=== PATIENT | male | born 1965 | race Caucasian/White ===

== ENCOUNTER 2021-11-30 11:11 | Outpatient (CLI) | payer MEDICARE, SELFPAY ==
[2021-11-30 11:32] LABS: Hematocrit 44.1 % (42.0-52.0); Hemoglobin 14.6 g/dL (14.0-18.0); Mean Corpuscular HGB Conc 33.1 g/dl (32-36); Mean Corpuscular Hemoglobin 33.1 pg (26-34); Platelet Count Result 260 k/mm3 (150-375); Red Blood Count 4.41 M/mm3 (4.6-6.20); Red Cell Distribution Width 12.9 % (11.5-14.5)
[2021-11-30 11:57] LABS: Alanine Aminotransferase 38 U/L (6-50); Albumin Level 4.3 g/dL (3.5-5.1); Alkaline Phosphatase 76 U/L (38-126); Anion Gap 8 mmol/L (8-16); Aspartate Amino Transferase 35 U/L (17-59); Bilirubin,Total 0.7 mg/dL (0.2-1.3); Blood Urea Nitrogen 29 mg/dL (9-20); Calcium 9.4 mg/dL (8.4-10.2); Carbon Dioxide 27 mmol/L (22-30); Chloride 101 mmol/L (98-107); Estimated Glomerular Filt Rate 45; Glucose 100 mg/dL (65-110); Potassium 4.3 mmol/L (3.4-5.0); Sodium 136 mmol/L (137-145)
[2021-12-03 15:28] LABS: Cholesterol 277 mg/dL (0-200); HDL Direct 53 mg/dL; Triglycerides 264 mg/dL (<150)
[2021-12-03 15:39] LABS: LDL Cholesterol Direct 166 mg/dL
== END 2021-11-30 11:12 | disposition home or self-care (01) ==
PROVIDERS: PCP Family Medicine; Visit Provider Physician Assistant
DX: E78.00 Pure hypercholesterolemia, unspecified (principal); R53.83 Other fatigue; Z13.1 Encounter for screening for diabetes mellitus; Z12.5 Encounter for screening for malignant neoplasm of prostate
CPT/HCPCS: 36415; 80053; 80061; 84153; 85027; G0103

== ENCOUNTER 2021-12-07 09:22 | Outpatient (CLI) | payer MEDICARE, SELFPAY ==
--- NOTE | ~2021-12-07 | XR_ITS ---
EXAMINATION: XR knee LT min 4V DATE: 12/07/2021 10:04 INDICATION: Painful lump anteroinferior to the left patella. TECHNIQUE: 4 views of left knee including standing views were obtained. COMPARISON: None. FINDINGS: Bone alignment is normal. No fracture. There is mild tricompartmental osteoarthritis charac terized by tiny osteophytes. No joint space narrowing. There is a small knee joint effusion. There is shrapnel in the soft tissues with the largest fragment measuring 6 mm in the posterior soft tissues. There is superficial infrapatellar soft tissue swelling. IMPRESSION: 1. Mild left knee osteoarthritis. 2. Small left knee joint effusion. 3. Superficial infrapatellar soft tissue swelling. 4. Shrapnel in the soft tissues. Reviewed, dictated and finalized at location A.
--- NOTE | ~2021-12-07 | CT_ITS ---
EXAMINATION: CT lung screening DATE: 12/07/2021 09:45 INDICATION: Personal history of nicotine dependence, current smoker with 80 pack year history TECHNIQUE: Computed tomography (CT) of the chest was performed without intravenous contrast. The dose -length product (DLP) was 169.89 mGy-cm. Automated exposure control and iterative reconstruction tech [employer] were employed. COMPARISON: None FINDINGS: There is mild emphysema. There is a 2 mm nodule of the left upper lobe on image 47. Calcifi ed pulmonary nodules are consistent with old granulomatous disease. The lungs are free of acute opaci ties. No pleural effusion or pneumothorax. No pathologically enlarged thoracic lymph nodes are identi fied. The heart size is normal. There is moderate thoracic spondylosis. There is a partially imaged 4 .4 cm cyst of the right kidney. IMPRESSION: 1. Lung-RADS category 2: Benign appearance or behavior. Continue annual screening with noncontrast lo w-dose chest CT in 12 months. Reviewed, dictated and finalized at location B. IMPRESSION: 1. Lung-RADS category 2: Benign appearance or behavior. Continue annual screeni ng with noncontrast low-dose chest CT in 12 months.
== END 2021-12-07 09:23 | disposition home or self-care (01) ==
PROVIDERS: PCP Family Medicine; Visit Provider Physician Assistant
DX: Z12.2 Encounter for screening for malignant neoplasm of respiratory organs (principal); Z87.891 Personal history of nicotine dependence; M17.12 Unilateral primary osteoarthritis, left knee; M25.462 Effusion, left knee; M79.89 Other specified soft tissue disorders
CPT/HCPCS: 71271; 73564

== ENCOUNTER 2022-04-11 12:45 | Emergency (ER) | payer MEDICARE, SELFPAY ==
[2022-04-11 13:20] VITALS: BP 160/85; PULSE 98; RESP 20; TEMP 36.5; O2SAT 99
--- NOTE | 2022-04-11 14:03 | ED.GENADULT ---
HPI - General Adult General Chief complaint: Extremity Injury, Upper Stated complaint: thumb injury Time Seen by Provider: 04/11/22 14:03 Source: patient, RN notes reviewed and old records reviewed Mode of arrival: ambulatory Limitations: no limitations History of Present Illness HPI narrative: 56-year-old male presents to the [facility] with the swelling to the right [place]/ pad of thumb. Patient states that he had a ?paper cut? from sharpening his lawnmower blade 6 days ago and every day has become worse. Redness, swelling, No increased warmth noted. No streaking of erythema. White dry patches noted to the pad of the thumb. States that he has been soaking his thumb in peroxide. No open wounds noted. Tenderness on palpation Patient is requesting pain medication that is stronger than Motrin that will ?knock him out. ? Onset (ago): day(s) (6) Related Data Allergies Allergy/AdvReac Type Severity Reaction Status Date / Time acetaminophen AdvReac Severe Nausea and Verified 04/11/22 13:18 [From Tylenol-Codeine #3] Vomiting codeine AdvReac Severe Nausea and Verified 04/11/22 13:18 [From Tylenol-Codeine #3] Vomiting Review of Systems Review of Systems: All systems reviewed & are unremarkable except as noted in HPI and below Constitutional: Constitutional: Reports no additional constitutional complaints Eyes: Eyes: Reports no additional eye complaints ENT: Reports system reviewed and no additional complaints, except as documented Cardiovascular: Cardiovascular: Reports no additional cardiovascular complaints, Denies chest pain and Denies dyspnea Respiratory: Respiratory: Reports no additional respiratory complaints, Denies chest congestion, Denies cough and Denies dyspnea Gastrointestinal: Gastrointestinal: Reports no additional gastrointestinal complaints, Denies abdominal pain, Denies nausea and Denies vomiting Musculoskeletal: Musculoskeletal: Reports as per HPI Integumentary/Breasts: Skin/Breast: Reports as per HPI Neurologic: Reports system reviewed and no additional complaints, except as documented Psychiatric: Psychiatric: Reports no additional psychiatric complaints Allergic/Immunologic: Allergic/Immunologic: Reports no additional allergic/immunologic complaints [facility] Past Medical History Medical History COPD (chronic obstructive pulmonary disease) History of back problems Hypertension Tobacco use Surgical History Surgical History History of knee surgery Trauma History of lumbar surgery History of traumatic lumbar injury, around 1999 Social History Social History Smoking packs per day: 2 Smoking cigarettes per day: 40.0 Years smoked: 40 Smoking pack-years: 80.00 Smoking status: Current every day smoker Tobacco type: cigarettes Second hand tobacco smoke exposure: No Alcohol intake: current Drinks per week: 7 Substance use: current Substance use type: marijuana Other substance usage details: smokes marijuana daily Lack of Transportation: No Lack of Food: Sometimes True Current Housing: I Have Housing Concerned About Future Housing: No Difficulty Paying Gas/Electric Bills: YES Difficulty Paying for Meds: YES Currently Unemployed: No Education: Trade/Vocational Certificate Difficulty w/ Childcare or Family Care: No Gender identity (if verbalized by the patient): Male Spiritual care concerns: No Agree to blood products: Yes Comments At the time of my signature, I reviewed and agree with the nursing past medical, surgical, social, and family history. There is no relevant family history pertinent to the patient complaint. Exam Const: General: cooperative, healthy appearing, comfortable, no acute distress, well developed, alert and well nourished Nutritional Appearance: well nourished Orientation/consciousness: patient oriented x3 Rivera
== END 2022-04-11 14:14 | disposition home or self-care (01) ==
PROVIDERS: Emergency Provider Nurse Practitioner; PCP Family Medicine
DX: L03.011 Cellulitis of right finger (principal); J44.9 Chronic obstructive pulmonary disease, unspecified; I10 Essential (primary) hypertension; F17.210 Nicotine dependence, cigarettes, uncomplicated; F12.90 Cannabis use, unspecified, uncomplicated
CPT/HCPCS: 99213; G0463

== ENCOUNTER 2023-01-08 08:42 | Outpatient (CLI) | payer MEDICARE, SELFPAY ==
[2023-01-08 09:18] LABS: Hematocrit 44.2 % (42.0-52.0); Hemoglobin 14.3 g/dL (14.0-18.0); Mean Corpuscular HGB Conc 32.4 g/dl (32-36); Mean Corpuscular Volume 102.1 fl (80-100); Mean Platelet Volume 9.3 fl (7.4-10.4); Platelet Count Result 276 k/mm3 (150-375); Red Blood Count 4.33 M/mm3 (4.6-6.20); Red Cell Distribution Width 12.8 % (11.5-14.5); White Blood Count 8.8 K/mm3 (4.5-10.0)
[2023-01-08 09:23] LABS: Alanine Aminotransferase 30 U/L (6-50); Albumin Level 4.4 g/dL (3.5-5.1); Alkaline Phosphatase 82 U/L (38-126); Anion Gap 4 mmol/L (8-16); Aspartate Amino Transferase 35 U/L (17-59); Blood Urea Nitrogen 21 mg/dL (9-20); Calcium 8.6 mg/dL (8.4-10.2); Carbon Dioxide 29 mmol/L (22-30); Chloride 104 mmol/L (98-107); Estimated Glomerular Filt Rate 52; Glucose 92 mg/dL (65-110); Potassium 3.7 mmol/L (3.4-5.0); Sodium 137 mmol/L (137-145)
[2023-01-09 17:29] LABS: Prostate Specific Antigen 3.7 ng/mL (< OR = 4.0)
== END 2023-01-08 08:43 | disposition home or self-care (01) ==
PROVIDERS: PCP Family Medicine; Visit Provider Physician Assistant
DX: D64.9 Anemia, unspecified (principal); Z13.1 Encounter for screening for diabetes mellitus; Z12.5 Encounter for screening for malignant neoplasm of prostate
CPT/HCPCS: 36415; 80053; 84153; 85027; G0103

== ENCOUNTER 2023-01-22 16:24 | Outpatient (CLI) | payer MEDICARE, SELFPAY ==
--- NOTE | ~2023-01-22 | US_ITS ---
EXAMINATION: US renal BI DATE: 01/22/2023 17:29 INDICATION: Chronic kidney disease TECHNIQUE: Multiple grayscale and Doppler ultrasound images of the kidneys were obtained. COMPARISON: None. FINDINGS: The right kidney measures 11.4 x 6.7 x 4.5 cm. There is a 5.2 cm cyst of the right kidney l ower pole. The left kidney measures 10.7 x 5.6 x 4.7 cm. The kidneys demonstrate normal parenchymal e chogenicity. There is no hydronephrosis. The bladder is normal. There are approximately 83 cc of post residual in the bladder. IMPRESSION: 1. Normal kidneys without hydronephrosis. 2. Small volume of postvoid residual in the urinary bladder. Reviewed, dictated and finalized at location F.
== END 2023-01-22 16:25 | disposition home or self-care (01) ==
PROVIDERS: PCP Family Medicine; Visit Provider Family Medicine
DX: N18.30 Chronic kidney disease, stage 3 unspecified (principal)
CPT/HCPCS: 76775

== ENCOUNTER 2023-01-31 10:45 | Outpatient (CLI) | payer MEDICARE, SELFPAY ==
--- NOTE | ~2023-01-31 | CT_ITS ---
CT OF right knee EXAMINATION: CT knee RT wo con DATE: 01/31/2023 10:59 INDICATION: Right anterior knee pain, no acute injury. TECHNIQUE: Computed tomography (CT) of the right knee was performed without intravenous contrast. Aut omated exposure control and iterative reconstruction technique were employed. The dose-length product was 507.82 mGy-cm. COMPARISON: None FINDINGS: Normal mineralization. No fracture or dislocation. Mild medial joint space narrowing and moreland bchondral sclerosis. Mild tricompartmental osteophytosis. Degenerative change and medial extrusion of the medial meniscus. The cruciate ligaments appear to be intact. The lateral meniscus appears to be intact. There is subcutaneous fat stranding anteriorly. Intact quadriceps and patellar tendons. Moder ate volume joint fluid. IMPRESSION: Anterior subcutaneous fat stranding may represent contusion, edema, or cellulitis depending on the cl inical context. Mild tricompartmental osteoarthritis. Degenerative changes and medial extrusion of the medial meniscus. A meniscal tear is not excluded. Moderate knee joint effusion. Reviewed, dictated and finalized at location K. IMPRESSION: Anterior subcutaneous fat stranding may represent contusion, edema, or cellulit is depending on the clinical context. Mild tricompartmental osteoarthritis. Degenerative changes and medial extrusion of the medial meniscus. A meniscal te ar is not excluded. Moderate knee joint effusion.
== END 2023-01-31 10:46 | disposition home or self-care (01) ==
PROVIDERS: PCP Family Medicine; Visit Provider Physician Assistant Surgical
DX: M25.461 Effusion, right knee (principal); M17.11 Unilateral primary osteoarthritis, right knee
CPT/HCPCS: 73700

== ENCOUNTER 2023-03-17 02:17 | Day surgery (SDC) | payer MEDICARE, SELFPAY ==
[2023-03-05 15:58] VITALS: BMI 28.3
--- NOTE | 2023-03-05 16:13 | PC.NURSE ---
Report to the Outpatient Waiting Room, entrance under the green pavilion located off [facility], at time 1:00pm on date 03-17-23. Planned Procedure Time: 3:00pm. Time changes happen often and if your time is changed the preop area will call you the afternoon before. - You and your visitor will be asked to self-screen and do not enter if you have any COVID symptoms. - A mask is optional within the hospital at this time. Patients may have clear liquids (water, carbonated beverages, clear teas, apple juice) until 3 hours prior to surgery (12:00pm) with a maximum of 20 ounces. - No food from midnight until time of surgery Take the following medications with a SIP of water the morning of surgery: inhaler as needed DO NOT STOP ANY OF YOUR OTHER PRESCRIPTION MEDICATIONS PRIOR TO SURGERY EXCEPT THE FOLLOWING Medications to discontinue per physician n/a Please no make-up, nail mongolian, hairspray, perfume, deodorant, or body powder the day of surgery. No jewelry (including any body piercings) or valuables the day of surgery, leave them at home. Please take a shower or bath the night before, or the morning of, surgery with an antibacterial soap. Wear comfortable, loose fitting clothing. - Jewelry must be removed prior to entering the operating room. Rings and piercings that are not removed may be cut off. - The hospital will not accept responsibility for valuables. - Please leave all valuables, including medications, at home the day of surgery. If you are going home after surgery, a licensed straddle truck driver must drive you home. - NO public transportation without another adult if you receive anesthesia. - We recommend that an adult stay with you for 24 hours following discharge. - We also recommend that you do not drive, make important decision, drink alcoholic beverages, or take any drugs that were not prescribed by your health care provider for at least 24 hours after your discharge time. Follow any additional instructions given to you from your surgeon. If you or anyone in your household have experienced Covid symptoms in the past week, please notify your surgeon or the nurse liaison at the phone number below for possible testing. Telephone instructions given to PATIENT and asked if any additional questions and then verbalized understanding. Patient advised to call surgeon office or pre surgery nurse liaison [phone] if any additional questions.
[2023-03-17] VITALS (8 sets, daily range): BP systolic 140–172; BP diastolic 71–92; PULSE 72–99; RESP 14–20; TEMP 36.4–36.5; O2SAT 96–100
--- NOTE | 2023-03-17 09:34 | ECG_ITS ---
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
[2023-03-17] MEDS: KETOROLAC 15 MG/ML VIAL (*BKC) IV PUSH (13:35)
[2023-03-17] MEDS: LACTATED RINGERS 1,000 ML 30 ML IV CONT ×2 (13:35→16:15)
[2023-03-17] MEDS: ACETAMINOPHEN 500 MG TABLET 1000 MG PO (13:35)
[2023-03-17 13:42] LABS: Anion Gap 10 mmol/L (8-16); Blood Urea Nitrogen 24 mg/dL (9-20); Calcium 9.7 mg/dL (8.4-10.2); Carbon Dioxide 30 mmol/L (22-30); Chloride 97 mmol/L (98-107); Estimated CRCL calculation 53 ml/min; Estimated Glomerular Filt Rate 45; Glucose 112 mg/dL (65-110); Potassium 4.2 mmol/L (3.4-5.0); Sodium 137 mmol/L (137-145)
[2023-03-17 13:43] LABS: INR 0.9; Prothrombin Time 12.8 Seconds (11.1-14.7)
--- NOTE | 2023-03-17 14:11 | WPDANESEPPF ---
Anes - Initial Pre Proc Eval Procedure: Operation Date: 03/17/23 15:00 Proposed Procedures p Right Knee Arthroscopic Partial Medial Meniscectomy - George Sanz MD Date/Time: 03/17/23 14:11 Surgeon: George Sanz MD Pre Op Diagnosis: right knee medial and lateral meniscus tears Patient Data Age: 57 Gender: M Height: 1.88 m Weight: 89.4 kg Last Vital Signs Temp 36.5 C 03/17/23 13:41 Pulse 87 03/17/23 13:41 Resp 14 03/17/23 13:41 BP 164/92 H 03/17/23 13:41 Pulse Ox 100 03/17/23 13:41 O2 Del Method Room Air 03/17/23 13:41 Allergies Allergy/AdvReac Type Severity Reaction Status Date / Time codeine AdvReac Severe Nausea and Verified 03/17/23 13:46 [From Tylenol-Codeine #3] Vomiting Home Medications Medication Instructions Recorded Confirmed Type atorvastatin 20 mg tablet 20 mg PO DAILY #30 tabs 06/07/22 03/17/23 Rx tiotropium bromide 1.25 2 puff inhalation DAILY 30 days #4 06/07/22 03/05/23 Rx mcg/actuation mist for inhalation grams (Spiriva Respimat) lisinopril 10 1 tablet PO DAILY 03/05/23 03/17/23 History mg-hydrochlorothiazide 12.5 mg tablet hydrocodone 5 mg-acetaminophen 325 1 - 2 tablet PO Q4-6H PRN pain #30 03/17/23 Rx mg tablet tabs Laboratory Tests 03/17/23 13:22 PT 12.8 Seconds (11.1-14.7) INR 0.9 APTT 29.0 SECONDS (22.3-36.8) Sodium 137 mmol/L (137-145) Potassium 4.2 mmol/L (3.4-5.0) Chloride 97 L mmol/L (98-107) Carbon Dioxide 30 mmol/L (22-30) Anion Gap 10 mmol/L (8-16) BUN 24 H mg/dL (9-20) Creatinine 1.60 H mg/dL (0.7-1.3) Estim Creat Clear Calc 53 ml/min Estimated GFR 45 L (59 - ) Glucose 112 H mg/dL (65-110) Calcium 9.7 mg/dL (8.4-10.2) Patient hx anesthesia problems: none Family hx anesthesia problems: none Results Review: All pre-operative results and documents have been reviewed as part of the pre-operative evaluation. [facility] Past Medical History Medical History Chronic renal insufficiency, stage III (moderate) COPD (chronic obstructive pulmonary disease) History of back problems Hypertension Tobacco use Surgical History Surgical History History of knee surgery Trauma History of lumbar surgery History of traumatic lumbar injury, around 1999 Social History Social History Smoking packs per day: 1 Smoking cigarettes per day: 20.0 Years smoked: 42 Smoking pack-years: 42.00 Smoking status: Current every day smoker Tobacco type: cigarettes Second hand tobacco smoke exposure: No Alcohol intake: current Drinks per week: 7 Alcohol use details: 2 bottles of liquor per week Substance use: current Substance use type: marijuana Other substance usage details: uses daily Last use: 03-05-23 Lack of Transportation: YES Lack of Food: Sometimes True Current Housing: I Have Housing Concerned About Future Housing: No Difficulty Paying Gas/Electric Bills: YES Difficulty Paying for Meds: YES Currently Unemployed: No Education: High School Diploma/GED Difficulty w/ Childcare or Family Care: No Living arrangements: alone Gender identity (if verbalized by the patient): Male Spiritual care concerns: No Agree to blood products: Yes Anes - Eval Final PreProcedure Day of Procedure 03/17/23 14:11 Patient weight: normal Heart: regular rate and rhythm Lungs: clear to auscultation Airway: Mallampati scale class II Neurological: alert and oriented Last oral intake: >/= 8 hours ASA classification: III Emergent: no Anesthetic plan: proceed Anesthesia type and monitoring: general LMA and standard monitoring Results Review: All pre-operative results and documents have been reviewed as part of the pre-operative evaluation. Informed Consent: The patient's anesthetic plan
--- NOTE | 2023-03-17 14:53 | WPDHPUPDATE1 ---
History and Physical Update Update Date/Time: 03/17/23 14:53 History and Physical has been reviewed, including an updated exam of the patient. There are NO changes in the patient's condition. Risks, benefits, and alternatives have been discussed and questions answered. Patient agrees to proceed with procedure.
[2023-03-17] MEDS: ceFAZolin 2 GM/D5W 50 ML 2 GM/50 ML BAG IVPB (15:10)
[2023-03-17] MEDS: BUPIVACAINE/EPINEPHRINE 0.5% 50 ML VIAL 30 ML INFILTRATE (15:41)
--- NOTE | 2023-03-17 16:15 | W.PM.PROC2 ---
Procedure Note - Detailed Date of Procedure 03/17/23 Pre-op Diagnosis right knee medial and lateral meniscus tears Post-op Diagnosis Other (Right knee medial meniscus tear) Procedure Performed Arthroscopic partial medial meniscectomy, right knee, with femoral chondroplasty. Surgeon George Sanz MD Anesthesia General Findings Extensive medial meniscus tear. Subtotal meniscectomy required. Significant femoral chondral damage along the medial femoral condyle and a linear stripe from anterior to posterior. This appeared to be impinging on the tear. He also had 2 areas of large areas of grade 3 chondromalacia on the medial femur both at the medial trochlea and a separate area on the lateral trochlea with an intact central stripe of cartilage. Delaminating areas were treated with gentle chondroplasty and the radiofrequency probe. The lateral compartment was normal in the weight-bearing portion other than the trochlea area mentioned. Patella had grade 2 chondromalacia diffusely. Description of Procedure The patient was identified and the surgical site confirmed and signed in the preoperative holding area. Antibiotics were started per protocol, and the patient was brought to the operative room and transferred to the OR table. A general anesthetic was administered. Supine position with the operative lower extremity position in the leg peck after placement of a well padded tourniquet. The leg support was lowered and the contralateral limb was supported with a soft bolster. The knee was prepped and draped in the usual sterile fashion. A time-out was performed. The portal sites were marked and infiltrated with 0.5% Marcaine 20 mL. The limb was exsanguinated and the tourniquet inflated to 300 mL Hg. Standard inferolateral and inferomedial portals were established. Inflow was obtained with the saline pump. The camera was introduced. Diagnostic inspection of the joint was accomplished. The meniscus was debrided with the arthroscopic shaver and punches until stable. The radiofrequency probe was also used for further d?bridement. Gentle chondroplasty on the medial femoral condyle and the lateral trochlea area was performed. The arthroscopic instruments were removed. The tourniquet released and wounds closed with subcutaneous 4-0 Monocryl absorbable suture. Steri strips and a sterile dressing were applied. A light elastic wrap was placed. The patient was extubated and brought to the recovery room in stable condition. Estimated Blood Loss 5 Drains No Complications No immediate complications Condition Stable Disposition PACU [facility] Billing Surgery - Charge Forward: Surgery Billing
[2023-03-17] MEDS: fentaNYL CITRATE INJ (*CRX) 100 MCG/2 ML VIAL 25 MCG IV PUSH ×6 (16:29→16:48)
[2023-03-17] MEDS: oxyCODONE HCL (*CRX) 5 MG TAB IR PO (17:21)
== END 2023-03-17 18:01 | disposition home or self-care (01) ==
PROVIDERS: Anesthesiology; PCP Family Medicine; Visit Provider Orthopaedic Surgery
PROC: (CPT 29870; principal; 2023-03-17 15:00)
DX: S83.241A Other tear of medial meniscus, current injury, right knee, initial encounter (principal); T14.90XA Injury, unspecified, initial encounter; M94.261 Chondromalacia, right knee; N18.30 Chronic kidney disease, stage 3 unspecified; I12.9 Hypertensive chronic kidney disease with stage 1 through stage 4 chronic kidney disease, or unspecified chronic kidney disease; F17.210 Nicotine dependence, cigarettes, uncomplicated
CPT/HCPCS: 29881; 36415; 80048; 85610; 85730; 93005; A9270; J0690; J1100; J1885; J2371; J2405; J2704; J3010; J7120

== ENCOUNTER 2023-04-04 10:00 | Outpatient (CLI) | payer MEDICARE, SELFPAY ==
--- NOTE | ~2023-04-04 | XR_ITS ---
Right Knee Technique: AP, lateral, and sunrise views were obtained. Clinical History: Arthritis Findings: No fracture or dislocation is seen. Osseous alignment is anatomic. Joint spaces are preserv ed without degenerative or erosive change. Moderate joint effusion is seen. Impression: Moderate joint effusion, nonspecific. Reviewed, dictated and finalized at [facility]. [employer] CHEMICAL DESIGN ENGINEER Impression: Moderate joint effusion, nonspecific.
== END 2023-04-04 10:01 | disposition home or self-care (01) ==
PROVIDERS: PCP Family Medicine; Visit Provider Orthopaedic Surgery
DX: Z47.89 Encounter for other orthopedic aftercare (principal); M25.461 Effusion, right knee
CPT/HCPCS: 73562

== ENCOUNTER 2024-02-06 14:28 | Outpatient (CLI) | payer MEDICARE, SELFPAY ==
--- NOTE | ~2024-02-06 | XR_ITS ---
XR knee LT min 4V Ordering provider: George Sanz MD History: . SWELLING/PAIN X 40 DAYS . Comparison: December 07, 2021 FINDINGS: BONES: No acute fracture or dislocation. JOINT SPACES: Normal. SOFT TISSUES: Suprapatellar bursa fluid. Foreign body seen posteriorly in the mid thigh IMPRESSION: No acute osseous abnormality left knee. Radiopaque foreign bodies seen posteriorly in the lower thigh. Reviewed, dictated and finalized at location A.
== END 2024-02-06 14:29 | disposition home or self-care (01) ==
PROVIDERS: PCP Family Medicine; Visit Provider Orthopaedic Surgery
DX: M22.42 Chondromalacia patellae, left knee (principal); S70.352A Superficial foreign body, left thigh, initial encounter; X58.XXXA Exposure to other specified factors, initial encounter
CPT/HCPCS: 73564

== ENCOUNTER 2024-03-24 12:34 | Outpatient (CLI) | payer MEDICARE, SELFPAY ==
--- NOTE | 2024-03-24 12:59 | ECG_ITS ---
Test Date: 2024-03-24 13:09:34 Measurements Intervals [place] Rate: 81 P: 65 NC: 162 QRS: 40 QRSD: 117 T: 127 QT: 386 QTc: 449 Interpretive Statements SINUS RHYTHM POSSIBLE LEFT ATRIAL ENLARGEMENT [-0.1mV P-WAVE IN V1/V2] LEFT VENTRICULAR HYPERTROPHY WITH STRAINE [VOLTAGE CRITERIA PLUS ST/T ABNORMALITY] No previous ECG available for comparison Electronically Signed On 03-24-2024 19:01:31 HOUSING AND RESIDENCE LIFE DIRECTOR by Mckenzie Cox
[2024-03-24 13:25] LABS: INR 1.1; Prothrombin Time 14.2 Seconds (11.1-14.7)
[2024-03-24 13:26] LABS: Partial Thromboplastin Time 26.8 Seconds (22.3-36.8)
[2024-03-24 13:31] LABS: Anion Gap 6 mmol/L (4-12); Blood Urea Nitrogen 24 mg/dL (9-20); Calcium 9.5 mg/dL (8.4-10.2); Carbon Dioxide 29 mmol/L (22-30); Chloride 103 mmol/L (98-107); Estimated Glomerular Filt Rate 48; Glucose 101 mg/dL (65-110); Potassium 4.4 mmol/L (3.4-5.0); Sodium 138 mmol/L (137-145)
== END 2024-03-24 12:35 | disposition home or self-care (01) ==
PROVIDERS: PCP Family Medicine; Visit Provider Anesthesiology
DX: E78.5 Hyperlipidemia, unspecified (principal); Z79.899 Other long term (current) drug therapy; I12.9 Hypertensive chronic kidney disease with stage 1 through stage 4 chronic kidney disease, or unspecified chronic kidney disease; N18.30 Chronic kidney disease, stage 3 unspecified; Z01.818 Encounter for other preprocedural examination
CPT/HCPCS: 36415; 80048; 85610; 85730; 93005

== ENCOUNTER 2024-03-24 13:40 | Outpatient (CLI) | payer MEDICARE, SELFPAY ==
--- NOTE | ~2024-03-24 | CT_ITS ---
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 Additional sagittal and coronal reconstructions were performed. Automated exposure contro l and iterative reconstruction technique were employed. The dose-length product was 198.09 mGy-cm. COMPARISON: Radiographs dated 02/06/2024 FINDINGS: Bone alignment is normal. Chronic mild depression of a small region of the articular cortex along the medial margin of the anterior weightbearing medial femoral condyle which could represent either impa ction fracture, stress fracture or collapsed osteochondral lesion. No acute fractures. At least minim al tricompartmental osteoarthritis at the left knee with tiny marginal osteophytes but relatively pre served joint spaces on nonweightbearing imaging. There is suggestion of a radial tear of the medial m eniscus fluid attenuation replacing the normal soft tissue density of the lateral side of the posteri or horn although evaluation is significantly more limited with non arthrographic CT abdomen than with MRI. Moderate-sized knee joint effusion. Nonspecific 1.8 x 1.5 x 1.2 cm subcutaneous cystic lesion o verlying the distal patellar tendon which could represent an epidermoid/sebaceous cyst. Again seen ar e multiple tiny high attenuation material, potentially shrapnel located along the superficial subcuta neous tissues overlying the distal vastus medialis near its patellar insertion. IMPRESSION: 1. Small region of chronic mild depression of the articular cortex at the medial aspect of the anteri or weightbearing medial femoral condyle which could represent chronic impaction or stress fracture ve rsus collapsed osteochondral lesion. 2. At least minimal tricompartmental osteoarthritis at the left knee and moderate-sized knee joint ef fusion with suggestion of a possible radial tear at the posterior horn of the medial meniscus. Assess ment is however significantly limited on CT and could consider further evaluation with MRI as clinica lly indicated. 3. 1.8 cm superficial subcutaneous lesion overlying the distal patellar tendon which could represent an epidermoid/sebaceous cyst. Reviewed, dictated and finalized at location A. [facility] IMPRESSION: 1. Small region of chronic mild depression of the articular cortex at the media l aspect of the anterior weightbearing medial femoral condyle which could repre sent chronic impaction or stress fracture versus collapsed osteochondral lesion . 2. At least minimal tricompartmental osteoarthritis at the left knee and modera te-sized knee joint effusion with suggestion of a possible radial tear at the p osterior horn of the medial meniscus. Assessment is however significantly limit ed on CT and could consider further evaluation with MRI as clinically indicated . 3. 1.8 cm superficial subcutaneous lesion overlying the distal patellar tendon which could represent an epidermoid/sebaceous cyst.
== END 2024-03-24 13:41 | disposition home or self-care (01) ==
LOC: MICIMG 13:41
PROVIDERS: PCP Orthopaedic Surgery; Visit Provider Orthopaedic Surgery
DX: M25.462 Effusion, left knee (principal); M22.42 Chondromalacia patellae, left knee; M17.12 Unilateral primary osteoarthritis, left knee
CPT/HCPCS: 73700

== ENCOUNTER 2024-03-30 02:45 | Day surgery (SDC) | payer MEDICARE, SELFPAY ==
[2024-03-23 12:29] VITALS: BMI 29.5
--- NOTE | 2024-03-23 12:35 | PC.NURSE ---
Report to the Outpatient Waiting Room, entrance under the green pavilion located off [facility], at time _1100_ on date _[id number]_. Planned Procedure Time: _1pm_.? Time changes happen often and if your time is changed the preop area will call you the afternoon before. - You and your visitor will be asked to self-screen and do not enter if you have any COVID symptoms. Please call surgeon if you need to reschedule. - A mask is optional within the hospital at this time. Patients may have clear liquids (water, carbonated beverages, clear teas, apple juice) until 3 hours prior to surgery with a maximum of 20 ounces. - No food from midnight until time of surgery and no smoking. This includes no chewing gum, candy or mints. Take only the following medications with a SIP of water on the morning of surgery: ____None DO NOT STOP ANY OF YOUR OTHER PRESCRIPTION MEDICATIONS PRIOR TO SURGERY EXCEPT THE FOLLOWING Medications to discontinue per physician None Please no make-up, nail nepalese, hairspray, perfume, deodorant, or body powder the day of surgery.? No jewelry (including any body piercings) or valuables the day of surgery, leave them at home.? Please take a shower or bath the night before, or the morning of, surgery with an antibacterial soap.? Wear comfortable, loose fitting clothing.? . - Jewelry must be removed prior to entering the operating room.? Rings and piercings that are not removed may be cut off. - The hospital will not accept responsibility for valuables.? - Please leave all valuables, including medications, at home the day of surgery. If you are going home after surgery, a licensed ambulette driver must drive you home.? - NO public transportation without another adult if you receive anesthesia. - We recommend that an adult stay with you for 24 hours following discharge. - We also recommend that you do not drive, make important decision, drink alcoholic beverages, or take any drugs that were not prescribed by your health care provider for at least 24 hours after your discharge time. Follow any additional instructions given to you from your surgeon. Telephone instructions given to _Tim_and asked if any additional questions and then verbalized understanding. Patient advised to call surgeon office or pre surgery nurse liaison [phone] if any additional questions.
[2024-03-30] VITALS (9 sets, daily range): BP systolic 128–166; BP diastolic 72–94; PULSE 67–86; RESP 14–20; TEMP 36.1–36.6; O2SAT 95–100; BMI 26.4
--- NOTE | 2024-03-30 07:19 | WPDHPUPDATE1 ---
History and Physical Update Update Date/Time: 03/30/24 07:19 History and Physical has been reviewed, including an updated exam of the patient. There are NO changes in the patient's condition. Risks, benefits, and alternatives have been discussed and questions answered. Patient agrees to proceed with procedure.
[2024-03-30] MEDS: LACTATED RINGERS 1,000 ML 30 ML IV CONT (11:23)
--- NOTE | 2024-03-30 11:39 | WPDANESEPPF ---
Anes - Initial Pre Proc Eval Procedure: Operation Date: 03/30/24 13:00 Proposed Procedures p Left Knee Arthroscopic Partial Medial Meniscectomy - George Sanz MD Date/Time: 03/30/24 11:39 Surgeon: George Sanz MD Pre Op Diagnosis: Medial Menicus Tear Left Knee Patient Data Age: 58 Gender: M Height: 1.88 m Weight: 93.4 kg Last Vital Signs Temp 36.6 C 03/30/24 10:22 Pulse 83 03/30/24 10:22 Resp 16 03/30/24 10:22 BP 160/94 H 03/30/24 10:22 Pulse Ox 100 03/30/24 10:22 O2 Del Method Room Air 03/30/24 10:22 Allergies Allergy/AdvReac Type Severity Reaction Status Date / Time codeine (From AdvReac Severe Nausea and Verified 03/25/24 14:27 Tylenol-Codeine #3) Vomiting Home Medications ?Medication ?Instructions ?Recorded ?Confirmed ?Type atorvastatin 20 mg tablet 20 mg PO DAILY #90 tabs 03/15/24 03/26/24 Rx lisinopril 10 1 tablet PO DAILY #90 tabs 03/15/24 03/26/24 Rx mg-hydrochlorothiazide 12.5 mg tablet hydrocodone 5 mg-acetaminophen 325 1 - 2 tablet PO Q4-6H PRN pain 7 03/30/24 Rx mg tablet days #30 tabs Patient hx anesthesia problems: none Family hx anesthesia problems: none Results Review: All pre-operative results and documents have been reviewed as part of the pre-operative evaluation. [facility] Past Medical History Medical History (Updated 03/29/24 @ 16:06 by Kevin Hager DO) Chronic, continuous use of opioids Hyperlipidemia Chronic renal insufficiency, stage III (moderate) Tobacco use Hypertension History of back problems COPD (chronic obstructive pulmonary disease) Surgical History Surgical History Status post medial meniscectomy of right knee (~03/17/23) History of knee surgery Trauma History of lumbar surgery History of traumatic lumbar injury, around 1999 Social History Social History Smoking packs per day: 1 Smoking cigarettes per day: 20.0 Years smoked: 45 Smoking pack-years: 45.00 Smoking status: Current every day smoker Tobacco type: cigarettes Second hand tobacco smoke exposure: No Alcohol intake: current Drinks per week: 20 Alcohol use details: 2 bottles of liquor per week Substance use: current Substance use type: marijuana Other substance usage details: Daily Last use: 03-05-23 Do You Feel Safe in your Home?: Yes Lack of Transportation: YES Lack of Food: Sometimes True Current Housing: I Have Housing Concerned About Future Housing: No Difficulty Paying Gas/Electric Bills: No Difficulty Paying for Meds: No Currently Unemployed: No Education: High School Diploma/GED Difficulty w/ Childcare or Family Care: No Living arrangements: with family Gender identity (if verbalized by the patient): Male Spiritual care concerns: No Agree to blood products: Yes Anes - Eval Final PreProcedure Day of Procedure 03/30/24 11:39 Patient weight: overweight Heart: regular rate and rhythm Lungs: clear to auscultation Airway: Mallampati scale class II Neurological: alert and oriented Last oral intake: >/= 8 hours ASA classification: III Emergent: no Anesthetic plan: proceed Anesthesia type and monitoring: general LMA and standard monitoring Results Review: All pre-operative results and documents have been reviewed as part of the pre-operative evaluation. Informed Consent: The patient's anesthetic plan and its attendant risks and benefits were discussed with the patient/family/POA. Questions were solicited and answers provided to the satisfaction of the patient/family/POA.
[2024-03-30] MEDS: KETOROLAC 15 MG/ML VIAL (*BKC) IV PUSH (11:45)
[2024-03-30] MEDS: ACETAMINOPHEN 500 MG TABLET 1000 MG PO (11:45)
[2024-03-30] MEDS: ceFAZolin 2 GM/D5W 50 ML 2 GM/50 ML BAG IVPB (12:50)
[2024-03-30] MEDS: BUPIVACAINE/EPINEPHRINE 0.5% 30 ML VIAL INFILTRATE (13:24)
[2024-03-30] MEDS: fentaNYL CITRATE INJ (*CRX) 100 MCG/2 ML VIAL 25 MCG IV PUSH ×4 (14:09→14:20)
--- NOTE | 2024-03-30 14:19 | P.OP_ITS ---
Procedure Note - Detailed Date of Procedure 03/30/24 Pre-op Diagnosis Medial Menicus Tear Left Knee Post-op Diagnosis Same Procedure Performed Arthroscopic partial medial meniscectomy, left knee. Surgeon George Sanz MD Anesthesia General Indications Persistent medial knee pain. CT showed evidence of a posterior horn tear as well as chronic impaction defect on the medial femoral condyle. Findings There were grade 2/3 chondral changes along the medial femoral condyle. No evidence of depression. There was hyperemia along the medial capsule. There appeared to be healing of an anterior lateral meniscus tear. There was a posterior horn radial tear. This was treated with gentle debridement to stabilize and taper the meniscus. Chondroplasty was performed on the medial femur. There was mild chondromalacia at the distal pole of the patella which w as also treated with chondroplasty. The patellofemoral compartment really looked quite good despite the mild patella chondromalacia. No significant chondromalacia or meniscal damage laterally. The ACL was intact. Description of Procedure The patient was identified and the surgical site confirmed and signed in the preoperative holding area. Antibiotics were started per protocol, and the patient was brought to the operative room and transferred to the OR table. A general anesthetic was administered. Supine position with the operative lower ex tremity position in the leg epck after placement of a well padded tourniquet. The leg support was lowered and the contralateral limb was supported with a soft bolster. The knee was prepped and draped in the usual sterile fashion. A time- out was performed. The portal sites were marked and infiltrated with 0.5% Marcaine 20 mL. The limb was exsanguinated and the tourniquet inflated to 300 mL Hg. Standard inferolateral and inferomedial portals were established. Inflow was obtained with the saline pump. The camera was introduced. Diagnostic inspection of the joint was accomplished. The meniscus was debrided with the arthroscopic shaver and punches until stable. Gentle chondroplasty performed along the medial femoral condyle, and the distal pole of the patella. The arthroscopic instruments were removed. The tourniquet released and wounds closed with subcutaneous 4-0 Monocryl absorbable suture. Steri strips and a sterile dressing were applied. A light elastic wrap was placed. The patient was extubated and brought to the recovery room in stable condition. Estimated Blood Loss 5 Drains No Complications No immediate complications Condition Stable Disposition PACU [facility] Billing Surgery - Charge Forward: Surgery Billing
[2024-03-30] MEDS: oxyCODONE HCL (*CRX) 5 MG TAB IR PO (14:45)
[2024-03-30] MEDS: ALBUTEROL SULFATE NEB 2.5 MG/3 ML INH INHALATION (15:22)
[2024-03-30] MEDS: UMECLIDINIUM BROMIDE 62.5 MCG ELLIPTA 1 PUFF INHALATION (15:23)
--- NOTE | 2024-03-30 15:36 | SUR.PREOP ---
pt noted to have increase work of breathing, 02 was 95% RA. MD Hager called and orders were received, Albuterol breathing treatment was administered by RT and Spiriva inhaler was given. Patient work of breathing has diminished and is now breathing normally.
== END 2024-03-30 15:55 | disposition home or self-care (01) ==
PROVIDERS: PCP Family Medicine; Visit Provider Orthopaedic Surgery
PROC: (CPT 29870; principal; 2024-03-30 13:00)
DX: M23.322 Other meniscus derangements, posterior horn of medial meniscus, left knee (principal); M22.42 Chondromalacia patellae, left knee; J44.9 Chronic obstructive pulmonary disease, unspecified; F17.210 Nicotine dependence, cigarettes, uncomplicated; F12.90 Cannabis use, unspecified, uncomplicated
CPT/HCPCS: 29881; 94640; A9270; J0690; J1100; J1885; J2003; J2250; J2405; J2704; J3010; J7120

== ENCOUNTER 2024-06-11 01:59 | Emergency (ER) | payer MEDICARE, SELFPAY ==
[2024-06-11 02:02] VITALS: BP 154/80; PULSE 92; RESP 16; TEMP 36.7; O2SAT 98
[2024-06-11 03:20] VITALS: BP 152/87; PULSE 77; RESP 18; O2SAT 99
--- NOTE | 2024-06-11 04:06 | ED.URI ---
HPI - URI/Sore Throat General Chief Complaint: Upper Respiratory Infection Stated Complaint: cold symptoms Time Seen by Provider: 06/11/24 03:03 History of Present Illness HPI Narrative: 58-year-old male with history of COPD and chronic smoking, presents to the emergency depart with upper respiratory infection symptoms for last 2 weeks associated with a cough productive of clear mucus, nasal congestion, inability to sleep secondary to cough. Endorses still smoking and running out of his albuterol inhaler at home. His albuterol was helping him in the past. Denies any fever chills. No chest pain shortness a breath. No injury or recent illnesses. He is otherwise in his normal state of health. Has been trying some gqnq-vuo-evoxemq therapies with mild relief of symptoms. Related Data Allergies Allergy/AdvReac Type Severity Reaction Status Date / Time codeine (From AdvReac Severe Nausea and Verified 06/11/24 03:17 Tylenol-Codeine #3) Vomiting Review of Systems Review of Systems: As reviewed above in HPI [facility] Past Medical History Medical History Chronic, continuous use of opioids Hyperlipidemia Chronic renal insufficiency, stage III (moderate) Tobacco use Hypertension History of back problems COPD (chronic obstructive pulmonary disease) Surgical History Surgical History Status post medial meniscectomy of right knee (~03/17/23) History of knee surgery Trauma History of lumbar surgery History of traumatic lumbar injury, around 1999 Social History Social History Smoking packs per day: 1 Smoking cigarettes per day: 20.0 Years smoked: 45 Smoking pack-years: 45.00 Smoking status: Current every day smoker Tobacco type: cigarettes Second hand tobacco smoke exposure: No Alcohol intake: current Drinks per week: 20 Alcohol use details: 2 bottles of liquor per week Substance use: current Substance use type: marijuana Other substance usage details: Daily Last use: 03-05-23 Do You Feel Safe in your Home?: Yes Lack of Transportation: YES Lack of Food: Sometimes True Current Housing: I Have Housing Concerned About Future Housing: No Difficulty Paying Gas/Electric Bills: No Difficulty Paying for Meds: No Currently Unemployed: No Education: High School Diploma/GED Difficulty w/ Childcare or Family Care: No Living arrangements: with family Gender identity (if verbalized by the patient): Male Spiritual care concerns: No Agree to blood products: Yes Exam Narrative: GENERAL: [Well-appearing, well-nourished, and in no acute distress.] HEAD: [Normocephalic, atraumatic.] EYES: [PERRLA and EOMI.] ENT: Nares clear, no rhinorrhea or epistaxis. Mucous membranes moist. NECK: Supple. CHEST: Coarse asymmetric breath sounds with some prolonged wheezing in the right side compared to left, no tachypnea or accessory muscle use. No respiratory distress. HEART: [Regular rate and rhythm]. No murmur heard. [Normal peripheral pulses.] ABDOMEN: [Soft, nondistended], [nontender], [No rigidity or guarding] EXTREMITIES: Normal range of motion. [No edema.] SKIN: Warm, dry, no rash. NEURO: [No focal deficits]. Alert and oriented [x3.] PSYCH: [Normal mood and affect.] Course Vital Signs Vital signs: Vital Signs Temperature 36.7 C 06/11/24 02:02 Pulse Rate 92 06/11/24 02:02 Respiratory Rate 16 06/11/24 02:02 Blood Pressure 154/80 H 06/11/24 02:02 Pulse Oximetry 98 06/11/24 02:02 Oxygen Delivery Room Air 06/11/24 02:02 Temperature 36.7 C 06/11/24 02:02 Pulse Rate 77 06/11/24 03:20 Respiratory Rate 18 06/11/24 03:20 Blood Pressure 152/87 H 06/11/24 03:20 Pulse Oximetry 99 06/11/24 03:20 Oxygen Delivery Room Air 06/11/24 03:20 MDM - URI/Sore Throat MDM Narrative Medical decision making narrative: 58-year-old male presenting with upper respiratory infection symptoms including cough, nasal congestion and difficulty sleeping secondary to the frequent coughing. Tried ftkr-[id number] medications without significant relief. He is not hypoxic, no tachycardia, fever or hypoxia. Normal blood pressure. Some asymmetric wheezing on auscultation suspicious for potential pneumonia or bronchitis. Low suspicion for a COPD exacerbation given his overall well appearance, no wheezing in the left side. Patient was given a dose of his albuterol treatment here since he has run out and at benzonatate for his cough. Chest x-ray was obtained to rule out pneumonia, COVID, flu swabs obtained. Chest x-ray shows no acute cardiopulmonary process. COVID flu and RSV swabs are negative. Patient is safe for stable discharge home at this time will be given prescription medications including benzonatate and albuterol. Prior to seeing his discharge instructions I was informed the patient had left without getting his paperwork. Medical Records Attestation: I reviewed the patient's medical records. Lab Data Attestation: I reviewed the patient's lab results. Labs: Lab Results 06/11/24 Range/Units 03:17 Influenza A (RT-PCR) Negative (Negative) Influenza B (RT-PCR) Negative (Negative) RSV (RT-PCR) Negative (Negative) SARS-CoV-2 RNA (RT-PCR) Negative (Negative) Imaging Data Attestation: I personally reviewed and interpreted this imaging study as follows: My impression: Impressions Chest X-Ray 06/11/24 05:35 IMPRESSION: 1: NO ACUTE CARDIOPULMONARY DISEASE. Discharge Plan Discharge Clinical Impression: Acute viral syndrome, COPD (chronic obstructive pulmonary disease), Acute upper respiratory infection Patient Disposition: Elopement After Seen by Prov Condition: Stable Patient Language: [place] Prescriptions: No Action atorvastatin 20 mg tablet 20 mg PO DAILY Qty: 90 3RF lisinopril-hydrochlorothiazide 10-12.5 mg tablet 1 tablet PO DAILY Qty: 90 3RF Rx Instructions: TAKE 1 TABLET BY MOUTH DAILY hydrocodone-acetaminophen 5-325 mg tablet 1 tablet PO Q12H MDD 2 PRN (Reason: pain) 10 Days Qty: 20 0RF Follow-up/Referrals: Hayley Lake MD [Primary Care Provider] - Time of Disposition: 06:22
[2024-06-11] MEDS: ALBUTEROL SULFATE (*SP) AEROSOL 1 PUFF 2 PUFF INHALATION (04:20)
[2024-06-11] MEDS: BENZONATATE 100 MG CAPSULE 200 MG PO (04:37)
[2024-06-11 04:52] LABS: Influenza A QL RT-PCR Negative (Negative); Influenza B QL RT-PCR Negative (Negative); RSV RNA, RT-PCR Negative (Negative); SARS-CoV-2 RNA PCR Negative (Negative)
--- NOTE | 2024-06-11 05:38 | PC.NURSE ---
Patient called out to nurses station and states he wants to go. Notified EDP Dr. Mcwilliams who advised that he was getting his discharge papers together. Notified patient that his discharge papers were getting prepared. Patient states I need to get out of this fucking room it's driving me nuts. No one has helped me . Patient was educated that we gave him medication to help with his symptoms. Patients again states this room is driving me nuts .
== END 2024-06-11 05:40 | disposition left against medical advice (07) ==
LOC: ANHED 03:26
PROVIDERS: Emergency Provider Student in an Organized Health Care Education/Training Program; PCP Family Medicine
DX: B34.9 Viral infection, unspecified (principal); J06.9 Acute upper respiratory infection, unspecified; J44.9 Chronic obstructive pulmonary disease, unspecified; Z20.822 Contact with and (suspected) exposure to COVID-19; I12.9 Hypertensive chronic kidney disease with stage 1 through stage 4 chronic kidney disease, or unspecified chronic kidney disease; N18.30 Chronic kidney disease, stage 3 unspecified; E78.5 Hyperlipidemia, unspecified; F17.210 Nicotine dependence, cigarettes, uncomplicated; Z79.899 Other long term (current) drug therapy
CPT/HCPCS: 71045; 87637; 94664; 99283; A9270

== ENCOUNTER 2024-07-28 13:34 | Outpatient (CLI) | payer MEDICARE, SELFPAY ==
--- NOTE | ~2024-07-28 | XR_ITS ---
Left Knee Technique: AP, lateral, and sunrise views were obtained. Clinical History: Other postprocedural state Findings: No fracture or dislocation is seen. Osseous alignment is anatomic. Joint spaces are preserv ed without degenerative or erosive change. Moderate joint effusion is seen. Impression: Moderate joint effusion. Reviewed, dictated and finalized at [facility]. Impression: Moderate joint effusion.
--- OUTSIDE RECORDS SUMMARY | 2024-07-28 14:44 | XMS_ITS | Clinical Summary ---
Author Organization [facility] Address [address] [place] [id number] Care Team Providers Care User Interface Engineer Name Role Phone Joselito Ferrer MD Primary Care Provider [phone] Medications VENTOLIN HFA 108 (90 Base) MCG/ACT inhalerIndicati ons:Shortness of breath INHALE 2 PUFFS INTO THE LUNGS EVERY 4 HOURS NEEDED FOR WHEEZING (ONE MINUTE APART) 18 Inhaler 10/08/2018 Active lisinopril 10 MG tablet Take 1 tablet by mouth daily. 01/29/2016 Active Active Problems Problem Noted Date Diagnosed Date BMI 26.0-26.9,adult 10/13/2018 Pure hypercholesterolemia 10/13/2018 Leukocytosis 01/30/2016 Macrocytosis without anemia 01/30/2016 Medication management 01/29/2016 Essential hypertension 01/29/2016 Chronic obstructive pulmonary disease ([facility]) 07/03/2015 Chronic pain 05/18/2015 Arthritis 12/12/2014 Chronic low back pain without sciatica 5 Knee pain 12/12/2014 Cigarette nicotine dependence without complicati on 12/12/2014 Social History Tobacco Use Types Packs/Day Years Used Date Smoking Tobacco: Every Day Alcohol Use Standard Drinks/Week Comments Yes 0 (1 standard drink = 0.6 oz pur e alcohol) Sex and Gender Information Value Date Recorded Sex Assigned at Not on file Legal Sex Male 8:16 PM CDT Gender Identity Not on file Sexual Orientation Not on file Last Filed Vital Signs Vital Sign Reading Time Taken Comments Blood Pressure 144/82 07/16/2017 9:03 AM CDT Pulse 99 07/16/2017 9:03 AM CDT Temperature - - Respiratory Rate - - Oxygen Saturation - - Inhaled Oxygen Concentration - - Weight 91.9 kg (202 lb 8 oz) 07/16/2017 9:03 AM CDT Height 188 cm (6' 2 ) 07/16/2017 9:03 AM CDT Body Mass Index 26 07/16/2017 9:03 AM CDT Plan of Treatment Health Maintenance Due Date Last Done Comments Colorectal Cancer Screening Colonoscopy (10 Years) 1964 Annual Physical 09/09/1967 Pneumococcal Vaccine: Pediat rics (0 to 5 Years) and At-Risk Patients (6 to 49 Years) (1 of 2 - PCV) 1970 Hepatitis C 1982 DTaP, Tdap and Td Vaccines ( 1 - Tdap) 09/09/1983 Zoster Vaccines (1 of 2) 2014 COVID-19 Vaccine (1 - 2023-2 5 season) 2023 Meningococcal B Vaccine Aged Out No l onger eligible based on patient's age to complete this topic Meningococcal Vaccine Aged Out No von diamond eligible based on patient's age to complete this topic RSV Immunizations Under 20 Months Aged Out No longer eligible based on patient's age to complete this topic Insurance MEDICARE Care Teams User Interface Engineer Relationship Specialty Start Date End Date Joselito Ferrer MD PCP - General INTERNAL MEDICINE 11/10/18
--- OUTSIDE RECORDS SUMMARY | 2024-07-28 14:44 | XMS_ITS | Clinical Summary ---
Author Organization [facility] Address [address] [place] [address] Phone Care Team Providers Care Medical Staff Director Name Role Phone Provider, Not On File Primary Care Provider Unav ailable Allergies No known active allergies Medications gabapentin (NEURONTIN) 300 MG Capsule Take 300 mg by mouth nightly. 08/30/2016 Active HYDROcodone-acet aminophen (NORCO) 5-325 MG Tablet Take 1-2 Tabs by mouth every 4 hours as needed for Pain. 20 Tab 0 09/13/2016 Active Social History Tobacco Use Types Packs/Day Years Used Date Smoking Tobacco: Every Day Cigarettes Alcohol Use Standard Drinks/Week Comments Yes 0 (1 standard drink = 0.6 oz pur e alcohol) Sex and Gender Information Value Date Recorded Sex Assigned at Not on file Legal Sex Male 12:09 AM CDT Gender Identity Not on file Sexual Orientation Not on file Last Filed Vital Signs Vital Sign Reading Time Taken Comments Blood Pressure 170/91 09/13/2016 10:07 AM CDT Pulse 98 09/13/2016 11:15 AM CDT Temperature 36.9 C (98.4 F) 09/13/2016 10:07 AM CDT Respiratory Rate 20 09/13/2016 10:07 AM CDT Oxygen Saturation 94% 09/13/2016 11:15 AM CDT Inhaled Oxygen Concentration - - Weight 93 kg (205 lb) 09/13/2016 10:07 AM CDT Height 188 cm (6' 2 ) 09/13/2016 10:07 AM CDT Body Mass Index 26.32 09/13/2016 10:07 AM CDT Plan of Treatment Not on file Insurance MEDICARE [place]ICAID [place] Care Teams Medical Staff Director Relationship Specialty Start Date End Date Provider, Not On File [place] PCP - General 09/13/16
== END 2024-07-28 13:35 | disposition home or self-care (01) ==
PROVIDERS: PCP Family Medicine; Visit Provider Physician Assistant Surgical
DX: M25.462 Effusion, left knee (principal); Z98.890 Other specified postprocedural states
CPT/HCPCS: 73564

== ENCOUNTER 2024-11-03 10:31 | Outpatient (CLI) | payer MEDICARE, SELFPAY ==
--- NOTE | ~2024-11-03 | XR_ITS ---
XR knee LT min 4V 11/03/2024 10:51 Indication: Postprocedural state. Surgery 5 months ago. Swelling. Procedure: 4 views left knee Comparison: 07/28/2024 Findings: Moderate joint effusion. Small radiodensities are present within the effusion, possibly pos tprocedural. Small elliptical foreign body posterior soft tissues overlying the femur. This is unchan ged. Moderate peripatellar soft tissue swelling. Mild patellofemoral compartment and medial compartme ntal degenerative change.. There is an osteochondral defect of the medial femoral condyle at the medi al margin. Impression: 1: Mild polyarticular osteoarthritis 2: Moderate joint effusion with small associated radiodensities, possibly postprocedural. 3: Osteochondral defect medial femoral condyle at the medial margin. Reviewed, dictated and finalized at location A. Impression: 1: Mild polyarticular osteoarthritis 2: Moderate joint effusion with small associated radiodensities, possibly post procedural. 3: Osteochondral defect medial femoral condyle at the medial margin.
--- OUTSIDE RECORDS SUMMARY | 2024-11-03 10:39 | XMS_ITS | Clinical Summary ---
Author Organization [facility] Address [address] [place] [address] Phone Care Team Providers Care Ship'S Engineer Name Role Phone Provider, Not On File [...] 10:07 AM CDT Height 188 cm (6' 2) 09/13/2016 10:07 AM CDT Body Mass Index 26.32 09/13/2016 10:07 AM CDT Plan of Treatment Not on file Insurance MEDICARE [place]ID [place] Care Teams Ship'S Engineer Relationship Specialty Start Date End Date Provider, Not On File [place] PCP - General 09/13/16
== END 2024-11-03 10:32 | disposition home or self-care (01) ==
PROVIDERS: PCP Family Medicine; Visit Provider Orthopaedic Surgery
DX: Z98.890 Other specified postprocedural states (principal); M17.12 Unilateral primary osteoarthritis, left knee; M25.462 Effusion, left knee
CPT/HCPCS: 73564

== ENCOUNTER 2024-11-03 11:47 | Outpatient (NON) | payer MEDICARE, SELFPAY ==
--- OUTSIDE RECORDS SUMMARY | 2024-11-03 11:44 | XMS_ITS | Clinical Summary ---
Author Organization [facility] Address [address] [place] [address] Phone Care Team Providers Care Tablet Coater Name Role Phone Provider, Not On File [...] file Insurance MEDICARE [place]ID [place] Care Teams Tablet Coater Relationship Specialty Start Date End Date Provider, Not On File [place] PCP - General 09/13/16
--- OUTSIDE RECORDS SUMMARY | 2024-11-03 11:44 | XMS_ITS | Clinical Summary ---
Author Organization [facility] Address [address] [place] [id number] Care Team Providers Care Goat Driver Name Role Phone Joselito Ferrer MD Primary Care Provider [phone] Medications VENTOLIN HFA 108 (90 Base) MCG/ACT [...] Essential hypertension 01/29/2016 Chronic obstructive pulmonary disease ([facility]) 07/03/2015 Chronic pain 05/18/2015 Arthritis 12/12/2014 Chronic [...] 9:03 AM CDT Height 188 cm (6' 2) 07/16/2017 9:03 AM CDT Body Mass Index 26 07/16/2017 9:03 AM CDT Plan of Treatment Health Maintenance Due Date Last Done Comments Colorectal Cancer Screening Colonoscopy (10 Years) 1964 Annual Physical 09/09/1967 Hepatitis C 1982 DTaP, Tdap and Td Vaccines ( 1 - Tdap) 09/09/1983 Pneumococcal Vaccine: 50+ Ye ars (1 of 2 - PCV) 09/09/1983 Zoster Vaccines (1 of 2) 2014 COVID-19 Vaccine (1 - 2023-2 5 season) 2023 RSV Immunization or 60+ Years (1 - Risk 60-74 years 1-dose series) 2024 Meningococcal B Vaccine Aged Out No l onger eligible based on patient's age to complete this topic Meningococcal Vaccine Aged Out No von diamond eligible based on patient's age to complete this topic RSV Immunizations Under 20 Months Aged Out No longer eligible based on patient's age to complete this topic Insurance MEDICARE Care Teams Goat Driver Relationship Specialty Start Date End Date Joselito Ferrer MD PCP - General INTERNAL MEDICINE 11/10/18
[2024-11-03 12:57] LABS: Color Synovial Fluid Yellow (Colorless); Source Synovial Fluid Lt Knee Syn Fluid
[2024-11-03 12:58] LABS: Lymphocytes Synovial Fluid 79 %; Macrophages Synovial Fluid 6 %; Monocytes Synovial Fluid 9 %; Neutrophils Synovial Fluid 1 % (0-25); Nucleated Cell Synovial Fluid 531 /uL (0-200); Other Cells Synovial Fluid 5 %; RBC Synovial Fluid < 2000 /uL (0-0)
== END 2024-11-03 11:48 | disposition home or self-care (01) ==
LOC: ANHLAB 11:47
PROVIDERS: PCP Family Medicine; Visit Provider Orthopaedic Surgery
DX: Z98.890 Other specified postprocedural states (principal); M25.462 Effusion, left knee; S83.242D Other tear of medial meniscus, current injury, left knee, subsequent encounter; X58.XXXD Exposure to other specified factors, subsequent encounter
CPT/HCPCS: 89051; 89060